=== PATIENT | female | born 1995 | race Two or more races ===

== ENCOUNTER 2021-03-20 10:37 | Emergency (ER) | payer OTHER ==
[~2021-03-20] VITALS: Ht 154.9 cm; Wt 59.0 kg
[2021-03-20] MEDS ORDERED: ACID REDUCER20 M1 (10:55)
[2021-03-20] MEDS ORDERED: IRON18 MG (10:56)
[2021-03-20] MEDS ORDERED: KETO10TA2 PO (15:51)
[2021-03-20] MEDS ORDERED: AMOX-CLAV 875-1 EACH PO (15:51)
== END 2021-03-20 16:04 | disposition home or self-care (01) ==
LOC: ER 10:37
DX: R22.0 Localized swelling, mass and lump, head (principal); R22.1 Localized swelling, mass and lump, neck; Z03.818 Encounter for observation for suspected exposure to other biological agents ruled out

== ENCOUNTER 2021-04-08 09:03 | Outpatient (CLI) | payer OTHER ==
[~2021-04-08 09:03] MED LIST: ACID REDUCER20 M1; AMOX-CLAV 875-1 EACH PO; IRON18 MG; KETO10TA2 PO
== END 2021-04-08 09:58 | disposition home or self-care (01) ==
LOC: SONOGRAMA 09:03
PROVIDERS: ATTEND Pathology Anatomic Pathology & Clinical Pathology
DX: E04.1 Nontoxic single thyroid nodule (principal)

== ENCOUNTER 2024-12-20 10:00 | Emergency (ER) | payer OTHER ==
[~2024-12-20] VITALS: Ht 154.9 cm; Wt 56.7 kg
[2024-12-20] MEDS ORDERED: IBUPROFEN600 MG PO (14:49)
== END 2024-12-20 14:55 | disposition home or self-care (01) ==
LOC: ER 10:00
DX: G89.11 Acute pain due to trauma (principal); M79.671 Pain in right foot